=== PATIENT | male | born 1985 | race Caucasian/White ===

== ENCOUNTER 2019-04-25 08:44 | Emergency (ER) | payer SELFPAY | END 2019-04-25 10:10 | disposition home or self-care (01) | LOC: FTE 08:44 | DX: L98.9 Disorder of the skin and subcutaneous tissue, unspecified (principal) | CPT/HCPCS: 99283 ==

== ENCOUNTER 2019-04-27 08:37 | Emergency (ER) | payer MEDICAID | END 2019-04-27 09:18 | disposition home or self-care (01) | LOC: FTE 09:18 | DX: Z48.00 Encounter for change or removal of nonsurgical wound dressing (principal) | CPT/HCPCS: 99281; Z7502 ==